=== PATIENT | male | born 1975 | race Caucasian/White ===

== ENCOUNTER 2016-09-28 07:56 | Day surgery (SDC) | payer SELFPAY ==
[2016-09-28] MEDS ORDERED: Lactated Ringer's 500 ML IV ONE (08:21)
[2016-09-28 08:40] VITALS: O2SAT 100
[2016-09-28] MEDS ORDERED: Propofol 10 mg/ml Inj (20 ML) ONE (09:11)
[2016-09-28 10:19] VITALS: BP 111/75; PULSE 54; RESP 15; TEMP 95.9
== END 2016-09-28 10:53 | disposition home or self-care (01) ==
LOC: H.ENDO 07:56
PROVIDERS: ATTEND Internal Medicine Gastroenterology
DX: K92.2 Gastrointestinal hemorrhage, unspecified (principal); K64.8 Other hemorrhoids; K62.89 Other specified diseases of anus and rectum